=== PATIENT | male | born 1955 | race Caucasian/White ===

== ENCOUNTER 2019-11-26 10:31 | Outpatient (CLI) | payer MEDICARE, SELFPAY ==
--- NOTE | 2019-11-26 10:41 | USCV_ITS ---
Nathan Ca Age: 64 Gender: M : 1955 Exam Date: 11/26/2019 10:55 Ordering Phys: Oly Patterson MD ([email or web address] [place] Technologist: Benita Sierra [place] [facility] [place]: STENOSIS Risk Factors: Previous Vascular Surgery: Right Brachial BP: / Left Brachial BP: / Right Left Velocity (cm/s) Spectral Plaque Velocity (cm/s) Spectral Plaque Syst/Diast Broadening Syst/Diast Broadening 120.20/8.80 Prox CCA 91.50 / 9.90 112.50/8.80 Mid CCA 76.10 / 11.00 76.10/ 7.70 Distal CCA 87.10 / 16.50 54.00/ 12.10 Prox ICA 74.50 / 21.90 63.90/ 13.20 Mid ICA 84.10 / 21.90 115.80/27.60 Distal ICA 68.70 / 14.60 101.40 ECA 102.50 1.03 ICA/CCA 1.11 Antegrade Vertebral Antegrade 33.10/ 11.00 cm/s 41.60/ 8.80 cm/s Tri Subclavian Tri FINDINGS TORTUOUS LT ICA. Mild to moderate scattered plaques bilaterally at the bifurcations. Intimal thickening in the common carotid arteries bilaterally. Antegrade flow in the vertebral arteries bilaterally. Normal Doppler flow velocities in the internal and external carotid arteries bilaterally CONCLUSIONS Mild to moderate scattered plaques bilaterally at the bifurcations. No significant stenosis, based on the above findings. Dr Oly Patterson MD [facility] (Electronically Signed) Final Date: 26 November 2019 13:03 S
== END 2019-11-26 10:32 | disposition home or self-care (01) ==
LOC: RAD 10:34 → RADWPI 11:06
PROVIDERS: Family Provider Family Medicine; PCP Family Medicine; Visit Provider Internal Medicine Cardiovascular Disease
DX: R09.89 Other specified symptoms and signs involving the circulatory and respiratory systems (principal)
CPT/HCPCS: 93880

== ENCOUNTER 2020-05-02 17:18 | Inpatient (IN) | payer MEDICARE, SELFPAY ==
[2020-05-02 17:41] VITALS: BP 105/77; PULSE 105; RESP 14; O2SAT 93; BMI 32.1
--- NOTE | 2020-05-02 17:56 | ECG_ITS ---
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 Measurements Intervals [place] Rate: 178 P: [place]: -1 QRS: -52 QRSD: 110 T: 83 QT: 268 QTc: 462 Interpretive Statements ATRIAL FIBRILLATION WITH RAPID VENTRICULAR RESPONSE PATTERN CONSISTENT WITH PULMONARY DISEASE LEFT ANTERIOR FASCICULAR BLOCK [QRS AXIS <= -45, QR IN I, RS IN II] MODERATE ST DEPRESSION [0.05+ mV ST DEPRESSION] CRITICAL TEST RESULT No previous ECG available for comparison Electronically Signed On 05-03-2020 16:20:29 CDT by Joseph Terry M.D. [email or web address] medical [id number]
--- NOTE | 2020-05-02 17:56 | XRR_ITS ---
PROCEDURE INFORMATION: Exam: XR Chest, 1 View Exam date and time: 05/02/2020 6:16 PM Age: 65 years old Clinical indication: Dyspnea TECHNIQUE: Imaging protocol: XR of the chest Views: 1 view. COMPARISON: [facility] Chest 2 views 06/21/2016 12:22 PM FINDINGS: Lungs: Shallow inspiration with crowding. Patchy ground-glass opacities in the right mid lung and lung base. The left lung is clear. Pleural space: Unremarkable. No pleural effusion. No pneumothorax. Heart/Mediastinum: Unremarkable. No cardiomegaly. Bones/joints: Unremarkable. XR/XR chest 1V portable [id number] IMPRESSION: Atelectasis versus pneumonia in the right lung.
--- NOTE | 2020-05-02 18:03 | CTR_ITS ---
PROCEDURE INFORMATION: Exam: CT Head Without Contrast Exam date and time: 05/02/2020 6:34 PM Age: 65 years old Clinical indication: Altered mental status/memory loss and weakness, extremity; Bilateral; Confusion or disorientation; Additional info: Ams/anticoagulants TECHNIQUE: Imaging protocol: Computed tomography of the head without contrast. Radiation optimization: All CT scans at this facility use at least one of these dose optimization techniques: automated exposure control; mA and/or kV adjustment per patient size (includes targeted exams where dose is matched to clinical indication); or iterative reconstruction. COMPARISON: No relevant prior studies available. RADIATION DOSE METRICS: Total DLP (mGy-cm): 855.91 FINDINGS: Brain: Mild cortical volume loss. Mild hypodensities in supratentorial periventricular and subcortical white matter. Prominent perivascular space in the right lentiform nucleus. Ventricles: Normal. No ventriculomegaly. Bones/joints: Unremarkable. No acute fracture. Sinuses: Small retention cyst or polyp in the left maxillary sinus. Mastoid air cells: Visualized mastoid air cells are well aerated. Soft tissues: Unremarkable. CT/CT head wo con* [id number] IMPRESSION: 1. No acute intracranial abnormality. 2. Mild microangiopathy. Radiation Dose CTDIVOL = (mGy): DLP = 855.91 (mGy-cm)
[2020-05-02 18:15] LABS: Basophils % 0.4 %; Hematocrit 48.8 % (42.0-52.0); Hemoglobin 17.1 g/dL (11.7-16.6); Lymphocytes % 26.5 %; Mean Corpuscular Volume 85.6 fL (80-94); Mean Platelet Volume 11.6 fL (7.4-10.4); Monocytes # 0.8 10^3/uL (0.2-0.9); Monocytes % 10.6 %; Neutrophils # 4.73 10^3/uL (1.8-7.7); Neutrophils % 62.1 %; Nucleated Red Blood Cells % 0 %; Platelet Count 177 10^3/cmm (130-400); Red Cell Distribution Width 12.9 % (12.1-15.1); White Blood Count 7.6 10^3/uL (4.0-10.0)
[2020-05-02 18:21] LABS: ABG PCO2 29.4 mmHg (35-45); ABG PH Result 7.39 (7.35-7.45); Arterial Blood Gas Hematocrit 53.5 % (42-52); Base Excess ABG -5.3 mmol/L (-2.0-2.0); Blood Gas Allen Test Pos; Blood Gas Sample Type Arterial; HCO3 ABG 17.9 mmol/L (22-26); PO2 ABG 76.2 mmHg (80.0-100.0)
[2020-05-02 18:24] LABS: Blood Gas Sample Site Radial, right; Oxygen Device ROOM AIR
[2020-05-02 18:28] LABS: INR 0.92 (0.8-1.2)
[2020-05-02 18:29] LABS: Partial Thromboplastin Time 26.1 SECONDS (23.9-36.7)
[2020-05-02 18:30] LABS: Fibrinogen 509 mg/dL (174-498)
[2020-05-02 18:32] LABS: D Dimer 0.55 ug/mIFEU (0-0.59)
[2020-05-02] MEDS: dexamethasone 4 mg/mL INJ 6 MG IVP (18:39)
--- NOTE | 2020-05-02 18:51 | ED_ITS ---
HPI - Weakness General: Chief complaint: Weakness Stated complaint: covid positive Time Seen by Provider: 05/02/20 17:56 Source: patient Mode of arrival: ambulatory Limitations: no limitations History of Present Illness: HPI Narrative: Mr. Bianchi is a very nice 65-year-old male brought in by his family for increased somnolence, generalized weakness, and nausea with vomiting. Patient states that he has been sick with similar symptoms for approximately 1 week. He was seen by his primary care physician in the office and had a COVID test performed and it came back positive. Patient states he continues to have muscle aches, fatigue and nausea and vomiting. He states that he cannot seem to stay awake but here in the ER after arrival he is alert and oriented times person, place, time and situation. He denies any chest pain or shortness of breath. Does not complain of abdominal pain or diarrhea only nausea and vomiting. He states resting and sleep makes his symptoms better and any type of exertion makes him more fatigued and makes his overall muscle aches worse. Did not place him on any steroids or other medications for his covert infection. Patient denies other complaints at this time. Associated symptoms: Reports nausea and vomiting; Denies chest pain, chills, confusion, melena, diaphoresis, dysuria, easy bruising, fever(s), headache(s) or syncope Review of Systems Const: Reports: body aches, change in appetite, fatigue and malaise; Denies: fever(s), chills or diaphoresis Eyes: Denies: change in vision, blurry vision, photophobia, eye discomfort, eye discharge, eye redness or yellow eyes ENMT: Denies: throat pain, odynophagia, hoarseness, swelling of lips/tongue, ear or mastoid pain, ear discharge, change in hearing or nasal discharge Card: Denies: chest pain, palpitations, irregular heart rhythm, edema, lightheadedness, syncope, pre-syncope, dyspnea on exertion or orthopnea Resp: Denies: dyspnea, productive cough, non-productive cough, wheezing, hemoptysis or chest congestion GI: Reports: nausea and vomiting; Denies: abdominal pain, hematemesis, coffee ground emesis, heartburn, diarrhea, constipation, GI cramping, hematochezia or melena : Denies: flank pain, dysuria, urinary frequency, urinary urgency or hematuria Musc: Denies: neck pain, back pain, extremity pain, extremity swelling, joint pain, joint swelling, joint redness, joint warmth or joint stiffness Skin/Breast: Denies: rash, pruritus, erythema, skin pain or skin tenderness Neuro: Denies: headache(s), numbness in extremities, weakness in extremities, sensory changes, lack of coordination, difficulty walking, dizziness, vertigo, confusion, Slurred speech present or seizure-like activity Liborio/Lymph: Denies: easy bruising, easy bleeding, petechiae, purpura or enlarged lymph nodes All/Imm: Denies: urticaria, throat swelling, tongue swelling, facial swelling or acute wheezing PFSH ED 2 PFSH: Medical History Atrial fibrillation Diabetes Fatigue Hyperlipidemia Hypertension Left carotid bruit Family History Other Diabetes Hypertension Stroke Social History Smoking and tobacco status: former smoker Alcohol intake: former Physical Exam Const: COMMON NORMALS: no acute distress, patient oriented x3, no limitations and alert GENERAL APPEARANCE: cooperative HENMT: COMMON NORMALS: normocephalic, atraumatic, external ears normal, EAC's normal and Normal external nose present HEAD & SCALP: normal to inspection, normocephalic and atraumatic FACE & SINUS: normal facial exam and face symmetric NOSE: Normal external nose present and Normal nares present EXTERNAL EAR: Yes external ears normal EXTERNAL AUDITORY CANAL: EAC's normal MOUTH: Normal oral and palatal mucosa present, lip normal and tongue normal Eye: COMMON NORMALS: Equal, round and reactive pupils present and conjunctivae normal GENERAL EYE: appearance normal, both eyes and all related structures ALIGNMENT: Yes alignment normal PERIORBITAL: periorbital findings normal EYELID: eyelids normal CONJUNCTIVA: Yes conjunctivae normal SCLERA: sclerae normal PUPIL: Yes Equal, round and reactive pupils present Neck/C-Spine: COMMON NORMALS: full ROM, no lymphadenopathy, supple, no meningeal signs and no JVD GENERAL: Yes normal visual inspection and Yes trachea midline Chest: COMMONS NORMALS: normal inspection of the chest and normal palpation of entire chest wall Resp: COMMON NORMALS: normal respiratory effort, No retractions, No use of accessory muscles and clear to auscultation bilaterally EFFORT & INSPECTION: Yes able to speak in complete sentences and Yes symmetric chest movement AUSCULTATION: clear to auscultation bilaterally, no crackles, no rales, no rhonchi and no wheezes Cardio: COMMON NORMALS: no JVD, S1 normal heart sound present and S2 normal heart sound present RATE: tachycardic RHYTHM: abnormal rhythm irregularly irregular HEART SOUNDS: S1 normal heart sound present, S2 normal heart sound present, no click, no gallops, no murmurs and no rubs GI: COMMON NORMALS: Soft to palpation and No hepatosplenomegaly present PALPATION: Yes Soft to palpation, No Tenderness to palpation present (GI), No Guarding due to palpation present (GI), No Rigid due to palpation, Yes No h epatosplenomegaly present, No Hernia present, No Palpable mass present and No Pulsatile mass present : COMMON NORMALS: Yes no CVA tenderness BLADDER/KIDNEY EXAM: Yes no CVA tenderness Back/Pelvis: COMMON NORMALS: no CVA tenderness, thoracic and lumbar spine normal to inspection, no thoracic nor lumbar tenderness and thoraco-lumbar ROM normal Extremity: COMMON NORMALS: normal to inspection, full ROM, capillary refill normal, no joint enlargement, no clubbing, cyanosis or edema and no calf tenderness Neuro: COMMON NORMALS: patient oriented x3, CN's II-XII intact bilaterally, moves all extremities, no focal motor deficits and no sensory deficits noted SENSORIUM/ORIENTATION: Yes alert MENINGEAL SIGNS: Yes no meningeal signs SPEECH: speech normal Psych: COMMON NORMALS: mental status grossly normal, Normal thought process present, cooperative, normal affect, speech normal and activity/motor behavior normal SPEECH: Yes normal speech THOUGHT PROCESS: Normal thought process present Skin: COMMON NORMALS: no rashes or lesions noted, turgor normal, no jaundice, no petechiae and no mottling GENERAL SKIN EXAM: no rashes or lesions noted and turgor normal Course Vital Signs: Vital signs: Vital Signs Pulse Rate 110 H 05/02/20 21:10 Respiratory Rate 18 05/02/20 21:10 Blood Pressure 127/69 05/02/20 21:10 Pulse Oximetry 94 05/02/20 21:10 MDM - Weakness MDM Narrative: Medical decision making narrative: Nathan is a 65-year-old male who comes in complaining of increased somnolence, generalized weakness and recently had a positive covert test. He was found to be in atrial fibrillation with rapid ventricular response. After 2 IV boluses of Cardizem and a drip his heart rate is running in the 100s to 1 teens. Chest x-ray could possibly show a right lower lobe infiltrate. Patient CT head is normal. He is not retaining CO2. I believe he is likely septic from either the COVID virus or focal pneumonia. He had a positive antibody test for COVID at [facility] but here are rapid test is negative. A PTC test has been sent. Patient is stable and has been given IV fluids and IV antibiotics. His heart rate is improved. I have endorsed the case to Dr. Carrillo and she agrees to admit for further evaluation and care. Lab Data: Attestation: I reviewed the patient's lab results. Labs: Lab Results 05/02/20 05/02/20 05/02/20 Range/Units 18:06 18:06 18:06 WBC 7.6 (4.0-10.0) 10^3/ uL RBC 5.70 H (4.1-5.3) 10^6/u L Hgb 17.1 H (11.7-16.6) g/dL Hct 48.8 (42.0-52.0) % MCV 85.6 (80-94) fL MCH 30.0 (28.0-34.0) pg MCHC 35.0 (30.0-36.0) g/dL RDW 12.9 (12.1-15.1) % Plt Count 177 (130-400) 10^3/c mm MPV 11.6 H (7.4-10.4) fL Neut % (Auto) 62.1 % Lymph % (Auto) 26.5 % Meriwether % (Auto) 10.6 % Eos % (Auto) 0.0 % Baso % (Auto) 0.4 % Neut # (Auto) 4.73 (1.8-7.7) 10^3/u L Lymph # (Auto) 2.0 (0.8-4.8) 10^3/u L Mer[place]ether # (Auto) 0.8 (0.2-0.9) 10^3/u L Eos # (Auto) 0.0 (0.0-0.8) 10^3/u L Baso # (Auto) 0.0 (0.0-0.1) 10^3/u L Nucleated RBC % (a uto) 0 % Nucleated RBCs # 0.0 /100WBC PT 12.60 (12.1-14.9) SECO NDS INR 0.92 (0.8-1.2) APTT 26.1 (23.9-36.7) SECO NDS Fibrinogen 509 H (174-498) mg/dL D-Dimer 0.55 (0-0.59) ug/mIFE U Specimen Type Sample Site ABG pH (7.35-7.45) ABG pCO2 (35-45) mmHg ABG pO2 (80.0-100.0) mmH g ABG HCO3 (22-26) mmol/L ABG Base Excess (-2.0-2.0) mmol/ L Jorge Test Hematocrit (42-52) % O2 Delivery Device FiO2 % Professor Of Psychology ID Sodium Cancelled Potassium Cancelled Chloride Cancelled Carbon Dioxide Cancelled Anion Gap Cancelled BUN Cancelled Creatinine Cancelled GFR Calculation Cancelled Glucose Cancelled Calculated Osmolal ity Cancelled Lactic Acid Lactic Acid (Sepsi s) (0.5-2.2) mmol/L Calcium Cancelled Ferritin Cancelled Total Bilirubin Cancelled AST Cancelled ALT Cancelled Alkaline Phosphata se Cancelled Lactate Dehydrogen ase Cancelled C-Reactive Protein Cancelled Total Protein Cancelled Albumin Cancelled Globulin Cancelled Procalcitonin Cancelled Serum Ketones (Negative) SARS-CoV-2 Ag (Rap id) (Negative) 05/02/20 05/02/20 05/02/20 Range/Units 18:06 18:10 18:39 WBC (4.0-10.0) 10^3/ uL RBC (4.1-5.3) 10^6/u L Hgb (11.7-16.6) g/dL Hct (42.0-52.0) % MCV (80-94) fL MCH (28.0-34.0) pg MCHC (30.0-36.0) g/dL RDW (12.1-15.1) % Plt Count (130-400) 10^3/c mm MPV (7.4-10.4) fL Neut % (Auto) % Lymph % (Auto) % Meriwether % (Auto) % Eos % (Auto) % Baso % (Auto) % Neut # (Auto) (1.8-7.7) 10^3/u L Lymph # (Auto) (0.8-4.8) 10^3/u L Meriwether # (Auto) (0.2-0.9) 10^3/u L Eos # (Auto) (0.0-0.8) 10^3/u L Baso # (Auto) (0.0-0.1) 10^3/u L Nucleated RBC % (a uto) % Nucleated RBCs # /100WBC PT (12.1-14.9) SECO NDS INR (0.8-1.2) APTT (23.9-36.7) SECO NDS Fibrinogen (174-498) mg/dL D-Dimer (0-0.59) ug/mIFE U Specimen Type Arterial Sample Site Radial, right ABG pH 7.39 (7.35-7.45) ABG pCO2 29.4 L (35-45) mmHg ABG pO2 76.2 L (80.0-100.0) mmH g ABG HCO3 17.9 L (22-26) mmol/L ABG Base Excess -5.3 L (-2.0-2.0) mmol/ L Jorge Test Pos Hematocrit 53.5 H (42-52) % O2 Delivery Device Room air FiO2 21.0 % Professor Of Psychology ID Jlg Sodium Potassium Chloride Carbon Dioxide Anion Gap BUN Creatinine GFR Calculation Glucose Calculated Osmolal ity Lactic Acid Cancelled Lactic Acid (Sepsi s) (0.5-2.2) mmol/L Calcium Ferritin Total Bilirubin AST ALT Alkaline Phosphata se Lactate Dehydrogen ase C-Reactive Protein Total Protein Albumin Globulin Procalcitonin Serum Ketones (Negative) SARS-CoV-2 Ag (Rap id) Negative (Negative) 05/02/20 05/02/20 05/02/20 Range/Units 18:39 18:39 18:39 WBC (4.0-10.0) 10^3/ uL RBC (4.1-5.3) 10^6/u L Hgb (11.7-16.6) g/dL Hct (42.0-52.0) % MCV (80-94) fL MCH (28.0-34.0) pg MCHC (30.0-36.0) g/dL RDW (12.1-15.1) % Plt Count (130-400) 10^3/c mm MPV (7.4-10.4) fL Neut % (Auto) % Lymph % (Auto) % Meriwether % (Auto) % Eos % (Auto) % Baso % (Auto) % Neut # (Auto) (1.8-7.7) 10^3/u L Lymph # (Auto) (0.8-4.8) 10^3/u L [place]ether # (Auto) (0.2-0.9) 10^3/u L Eos # (Auto) (0.0-0.8) 10^3/u L Baso # (Auto) (0.0-0.1) 10^3/u L Nucleated RBC % (a uto) % Nucleated RBCs # /100WBC PT (12.1-14.9) SECO NDS INR (0.8-1.2) APTT (23.9-36.7) SECO NDS Fibrinogen (174-498) mg/dL D-Dimer (0-0.59) ug/mIFE U Specimen Type Sample Site ABG pH (7.35-7.45) ABG pCO2 (35-45) mmHg ABG pO2 (80.0-100.0) mmH g ABG HCO3 (22-26) mmol/L ABG Base Excess (-2.0-2.0) mmol/ L Jorge Test Hematocrit (42-52) % O2 Delivery Device FiO2 % Professor Of Psychology ID Sodium 129 L Potassium 5.0 Chloride 93 L Carbon Dioxide 18 L Anion Gap 23.0 H BUN 36 H Creatinine 1.4 H GFR Calculation 50.5 L Glucose 362 H Calculated Osmolal ity 280 L Lactic Acid 2.4 H Lactic Acid (Sepsi s) (0.5-2.2) mmol/L Calcium 9.1 Ferritin Total Bilirubin 0.5 AST 20 ALT 20 Alkaline Phosphata se 90 Lactate Dehydrogen ase 225 C-Reactive Protein Total Protein 7.2 Albumin 4.2 Globulin 3.0 Procalcitonin Serum Ketones Negative (Negative) SARS-CoV-2 Ag (Rap id) (Negative) 09/11/20 Range/Units 20:45 WBC (4.0-10.0) 10^3/ uL RBC (4.1-5.3) 10^6/u L Hgb (11.7-16.6) g/dL Hct (42.0-52.0) % MCV (80-94) fL MCH (28.0-34.0) pg MCHC (30.0-36.0) g/dL RDW (12.1-15.1) % Plt Count (130-400) 10^3/c mm MPV (7.4-10.4) fL Neut % (Auto) % Lymph % (Auto) % Meriwether % (Auto) % Eos % (Auto) % Baso % (Auto) % Neut # (Auto) (1.8-7.7) 10^3/u L Lymph # (Auto) (0.8-4.8) 10^3/u L Mer[place]ether # (Auto) (0.2-0.9) 10^3/u L Eos # (Auto) (0.0-0.8) 10^3/u L Baso # (Auto) (0.0-0.1) 10^3/u L Nucleated RBC % (a uto) % Nucleated RBCs # /100WBC PT (12.1-14.9) SECO NDS INR (0.8-1.2) APTT (23.9-36.7) SECO NDS Fibrinogen (174-498) mg/dL D-Dimer (0-0.59) ug/mIFE U Specimen Type Sample Site ABG pH (7.35-7.45) ABG pCO2 (35-45) mmHg ABG pO2 (80.0-100.0) mmH g ABG HCO3 (22-26) mmol/L ABG Base Excess (-2.0-2.0) mmol/ L Jorge Test Hematocrit (42-52) % O2 Delivery Device FiO2 % Professor Of Psychology ID Sodium Potassium Chloride Carbon Dioxide Anion Gap BUN Creatinine GFR Calculation Glucose Calculated Osmolal ity Lactic Acid Lactic Acid (Sepsi s) 1.7 (0.5-2.2) mmol/L Calcium Ferritin Total Bilirubin AST ALT Alkaline Phosphata se Lactate Dehydrogen ase C-Reactive Protein Total Protein Albumin Globulin Procalcitonin Serum Ketones (Negative) SARS-CoV-2 Ag (Rap id) (Negative) Imaging Data^: CXR: Attestation: I personally reviewed and interpreted this imaging study as follows: My impression: Possible right lower lobe infiltrate. EKG Data^: EKG 1: Attestation: I personally reviewed and interpreted this EKG as follows: EKG interpretation date: 05/02/20 EKG interpretation time: 18:04 Interpretation: Atrial fibrillation with ventricular rate of 178 beats a minute, left axis deviation, left anterior fascicular block, nonspecific ST and T wave changes. EKG 2: Attestation: I personally reviewed and interpreted this EKG as follows: EKG interpretation date: 05/02/20 EKG interpretation time: 20:58 Interpretation: Atrial fibrillation with a rapid ventricular response at 121 beats a minute, left axis deviation, left anterior fascicular block, nonspecific ST and T wave changes. Discharge Plan Discharge Patient Disposition: Admitted As Inpatient Clinical Impression: Atrial fibrillation with rapid ventricular response, Pneumonia Condition: Stable Prescriptions: No Action Januvia 100 mg tablet 100 mg PO DAILY RF: 0 Jardiance 25 mg tablet 25 mg PO DAILY RF: 0 krill oil 500 mg capsule PO DAILY RF: 0 magnesium 250 mg PO DAILY RF: 0 Eliquis 5 mg tablet 5 mg PO BID RF: 0 rosuvastatin 10 mg tablet 10 mg PO DAILY RF: 0 metformin 1,000 mg tablet 1,000 mg PO DAILY RF: 0 metoprolol tartrate 50 mg tablet 50 mg PO BID Qty: 180 RF: 3 Referrals: Ramos Bradshaw MD [Primary Care Provider] - Interventions: ED Charges Last Done: 05/02/20 18:50 Coding Level of Care Code ED 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
[2020-05-02 19:13] LABS: SARS Covid-2 Antigen Negative (Negative)
[2020-05-02 19:14] LABS: Lactic Sepsis W/Reflex 2.4 mmol/L (0.5-2.2)
[2020-05-02 19:15] LABS: Alanine Aminotransferase 20 U/L (0-41); Albumin Level 4.2 g/dL (3.5-5.2); Alkaline Phosphatase 90 IU/L (40-130); Aspartate Amino Transferase 20 U/L (0-40); Blood Urea Nitrogen 36 mg/dL (8-23); Calcium 9.1 mg/dL (8.5-10.5); Carbon Dioxide 18 mmol/L (22-29); Chloride 93 mmol/L (98-107); Glomerular Filtration Rate 50.5 mL/min (90-130); Glucose 362 mg/dL (65-115); Lactate Dehydrogenase 225 U/L (135-225); Osmolality Calculated 280 mOsm/kg (285-295); Sodium 129 mmol/L (136-145); Total Bilirubin 0.5 mg/dL (0.15-1.2); Total Protein 7.2 g/dL (6.6-8.7)
--- NOTE | 2020-05-02 19:18 | ECG_ITS ---
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 Measurements Intervals [place] Rate: 121 P: [place]: -1 QRS: -45 QRSD: 105 T: 94 QT: 338 QTc: 481 Interpretive Statements ATRIAL FIBRILLATION WITH RAPID VENTRICULAR RESPONSE PATTERN CONSISTENT WITH PULMONARY DISEASE LEFT ANTERIOR FASCICULAR BLOCK [QRS AXIS <= -45, QR IN I, RS IN II] NONSPECIFIC ST & T-WAVE ABNORMALITY Compared to ECG 05/02/2020 18:04:46 T-wave abnormality now present ST (T wave) deviation no longer present Electronically Signed On 05-03-2020 16:20:37 CDT by Joseph Terry M.D. [id number]
[2020-05-02] MEDS: sodium chloride 0.9% 1,000 ML 999 ML IV (19:30)
[2020-05-02] MEDS: piperacillin-tazobactam 3.375 GM in sodium chloride 0.9% (plus) 50 ML IV (19:31)
[2020-05-02 19:53] VITALS: BP 110/78; PULSE 105; RESP 21; O2SAT 96
[2020-05-02 20:39] LABS: Reflex Lactate Order REFLEX LACTIC ORDERD
[2020-05-02 21:06] LABS: Ketone (Acetest) Serum Negative (Negative)
[2020-05-02 21:10] VITALS: BP 127/69; PULSE 110; RESP 18; O2SAT 94
[2020-05-02 21:11] LABS: Lactic Acid level (Lactate) 1.7 mmol/L (0.5-2.2)
[2020-05-02 21:14] LABS: Troponin(5th) Baseline 18 ng/L (0-15)
--- NOTE | 2020-05-02 21:18 | ECG_ITS ---
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 Measurements Intervals [place] Rate: 104 P: [place]: -1 QRS: -41 QRSD: 102 T: 95 QT: 340 QTc: 448 Interpretive Statements ATRIAL FIBRILLATION WITH RAPID VENTRICULAR RESPONSE LEFT AXIS DEVIATION [QRS AXIS < -30] NONSPECIFIC T-WAVE ABNORMALITY Compared to ECG 05/02/2020 20:58:44 Left-axis deviation now present Left anterior fascicular block no longer present T-wave abnormality still present Electronically Signed On 05-03-2020 16:22:16 CDT by Joseph Terry M.D. [id number]
--- NOTE | 2020-05-02 21:23 | PM.HP ---
Providers/Chief Complaint Admitting Physician: Kacey Carrillo MD Primary Care Provider: Ramos Bradshaw MD Chief Complaint: covid positive History of Present Illness Nathan Ca is a 65 year old male with PMHx noted below presents from home due to ongoing generalized weakness, malaise, cough with minimal sputum production, fever/chills, myalgia, increasing fatigue over the past 1 week. He states that his has also had similar symptoms and recently tested positive for COVID-19. He was tested on Tuesday at [facility] and found to be positive for COVID-19 as well. Since he was tested he has had worsening symptoms and increasing weakness to the point where he is barely able to get out of bed. He denies loss of sense of taste or smell, chest pain or chest tightness, abdominal pain. He has had nausea and vomiting, poor oral intake and diarrhea. He reports that prior to the onset of his symptoms due to recent loss of his niece family had gathered together for celebration of life event and shortly after this he developed symptoms. His son who lives in [place] who had come for the event is also positive for COVID-19. On his arrival here he was noted to have A. fib with RVR with heart rates in the 170s though he denies having had any palpitations. Labs indicate a normal white count at 7.6, hemoglobin of 17.1 which is likely hemoconcentration, sodium of 129, potassium of 5.0, BUN of 36, creatinine of 1.4, blood glucose of 362, ABG showing hypoxia, lactate of 2.4, negative d-dimer, normal INR, CT scan of the head which is negative, chest x-ray with reported atelectasis versus pneumonia in the right lung. He follows up with Dr. Patterson as his primary bag turner, last echo was in December 2018 showed an ejection fraction of 65% with grade 2 diastolic dysfunction. He has received a dose of Zosyn, 2 boluses of Cardizem and Cardizem drip is currently running. Heart rates are around 130s during my assessment at bedside in the ER. Rapid COVID-19 testing is negative, PCR has been ordered and is currently pending. Patient will remain in isolation until PCR test results available. Due to continued A. fib with RVR and need for continued treatment for symptomatic pneumonia he will need to be admitted to the hospital. Due to need for Cardizem drip, he will be admitted to CSU. Review of Systems Const: Reports: fever(s), chills, body aches, change in appetite (decreased appetite), fatigue, malaise and daytime sleepiness Eyes: Denies: change in vision Card: Denies: chest pain, swelling of feet/ankles, lightheadedness, syncope, dyspnea on exertion or orthopnea Resp: Reports: dyspnea and productive cough (clear sputum, minimal) GI: Reports: nausea, vomiting and diarrhea; Denies: abdominal pain, hematemesis or hematochezia : Denies: dysuria or hematuria Musc: Denies: back pain Skin/Breast: Denies: rash Neuro: Reports: weakness in extremities and difficulty walking; Denies: numbness in extremities Psych: Denies: anxiety Medications/Allergies Home Medications Medication Instructions Recorded Confirmed Last Taken Type apixaban 5 mg tablet 5 mg PO BID 11/06/19 Unknown History empagliflozin 25 mg tablet 25 mg PO DAILY 11/06/19 Unknown History krill oil 500 mg capsule mg PO DAILY cap 11/06/19 Unknown History magnesium 250 mg PO DAILY 11/06/19 Unknown History metformin 1,000 mg tablet 1,000 mg PO DAILY 11/06/19 Unknown History rosuvastatin 10 mg tablet 10 mg PO DAILY 11/06/19 Unknown History sitagliptin 100 mg tablet 100 mg PO DAILY 11/06/19 Unknown History metoprolol tartrate 50 mg tablet 50 mg PO BID #180 tab 01/30/20 Unknown Rx Allergies Allergy/AdvReac Type Severity Reaction Status Date / Time lisinopril Allergy Unknown cough Verified 11/06/19 13:44 PFSH Acute PFSH: Medical History (Updated 05/02/20 @ 21:55 by Kacey Carrillo MD) Atrial fibrillation Diabetes Fatigue Hyperlipidemia Hypertension Left carotid bruit Surgical History (Updated 05/02/20 @ 21:26 by Kacey Carrillo MD) No pertinent past surgical history Family History (Updated 05/02/20 @ 22:05 by Kacey Carrillo MD) Father Stroke Family/Other Cancer niece Other Diabetes Hypertension Social History (Updated 05/02/20 @ 22:05 by Kacey Carrillo MD) Smoking and tobacco status: former smoker Quit status (tobacco): has quit using tobacco Year quit tobacco: 1984 Alcohol intake: former Year of sobriety/quit date alcohol: 1984 Substance/Drug Use: never Household members: spouse Marital status: Vitals/I&O/Wt Last Vital Signs Pulse 110 H 05/02/20 21:10 Resp 18 05/02/20 21:10 BP 127/69 05/02/20 21:10 Pulse Ox 94 05/02/20 21:10 Weight last 48 hrs Weight 104.326 kg Physical Exam Const: COMMON NORMALS: no acute distress and patient oriented x3 GENERAL APPEARANCE: cooperative and comfortable ORIENTATION/CONSCIOUSNESS: Yes awake HENMT: COMMON NORMALS: normocephalic, atraumatic, hearing grossly normal bilaterally and moist oral mucous membranes HEAD & SCALP: normocephalic and atraumatic Eye: COMMON NORMALS: Equal, round and reactive pupils present, EOMs intact bilaterally and conjunctivae normal CONJUNCTIVA: Yes conjunctivae normal PUPIL: Yes Equal, round and reactive pupils present Neck/C-Spine: COMMON NORMALS: full ROM GENERAL: Yes normal visual inspection and Yes trachea midline Resp: COMMON NORMALS: normal respiratory effort, No retractions, No use of accessory muscles and clear to auscultation bilaterally EFFORT & INSPECTION: Yes able to speak in complete sentences, Yes symmetric chest movement and No tachypneic AUSCULTATION: clear to auscultation bilaterally Cardio: COMMON NORMALS: regular rate, regular rhythm, S1 normal heart sound present, S2 normal heart sound present and No murmurs present (Cardio) RATE: regular rate RHYTHM: regular rhythm HEART SOUNDS: S1 normal heart sound present and S2 normal heart sound present GI: COMMON NORMALS: Normal to inspection, nondistended, normoactive bowel sounds present, Soft to palpation and non-tender PALPATION: Yes Soft to palpation Extremity: COMMON NORMALS: normal to inspection, full ROM and no clubbing, cyanosis or edema; negative for no pedal edema Neuro: COMMON NORMALS: patient oriented x3, moves all extremities, no focal motor deficits, no sensory deficits noted and gait normal Psych: COMMON NORMALS: mental status grossly normal, Normal thought process present, cooperative, normal affect and speech normal SPEECH: Yes normal speech THOUGHT PROCESS: Normal thought process present Skin: COMMON NORMALS: no rashes or lesions noted, no jaundice, no petechiae and no mottling GENERAL SKIN EXAM: no rashes or lesions noted Data : 05/02/20 18:06 05/02/20 18:39 Micro: Microbiology 05/02/20 18:39 Blood Culture - Preliminary Blood SPECIMEN COLLECTED 05/02/20 18:06 Blood Culture - Preliminary Blood SPECIMEN COLLECTED A&P Assessment and plan (1) Atrial fibrillation with rapid ventricular response: -Found to have A. fib with RVR with heart rates in the 170s; likely triggered by respiratory infection -Received 2 boluses of Cardizem, currently on Cardizem drip running at 10 mg/hr; wean off as tolerated -Telemetry monitoring -Close monitoring of vital signs -Resume beta-theresa and anticoagulation with Eliquis -Last echo was done over a year ago so we will repeat; noted to have an ejection fraction of 65%, grade 2 diastolic dysfunction, mild MR, mild pulmonary hypertension -Noted baseline troponin of 18 -Check TSH, magnesium Status: Acute (2) Pneumonia: -Noted evidence of right-sided pneumonia on chest x-ray -Symptomatic and tested to [facility], found to be positive for COVID-19. Rapid COVID-19 test here negative, PCR pending -Isolation precautions -Received dose of Zosyn in ER, will continue treatment with ceftriaxone and azithromycin -f/u blood cx -Monitor respiratory status, supplemental oxygen as needed -ABG with noted hypoxia Status: Acute Qualifiers: Laterality: right Lung location: lower lobe of lung Pneumonia type: due to unspecified organism Qualified Code(s): J18.9 - Pneumonia, unspecified organism (3) Hypertension: -Monitor vital signs -Resume oral antihypertensives Status: Chronic Qualifiers: Hypertension type: essential hypertension Qualified Code(s): I10 - Essential (primary) hypertension (4) Hyperlipidemia: -Resume statin Status: Chronic Qualifiers: Hyperlipidemia type: mixed hyperlipidemia Qualified Code(s): E78.2 - Mixed hyperlipidemia (5) Diabetes: -Noted significant hyperglycemia, not in DKA serum ketones are negative, pH is normal -Check A1c -Accu-Cheks, ISS, hypoglycemia precautions -Consistent carb diet as tolerated -Hold oral hypoglycemic agents Status: Chronic Qualifiers: Diabetes mellitus type: type 2 Diabetes mellitus manager intermediate insulin use: without manager intermediate use Diabetes mellitus complication status: without complication Qualified Code(s): E11.9 - Type 2 diabetes mellitus without complications Additional A&P Information -Morbid obesity: BMI-32 kg/m2 -Generalized weakness, likely secondary to acute infection, PT evaluation, fall precautions -Pseudohyponatremia; corrected sodium is 133 -JEANNINE on CKD stage II; gentle IV fluid hydration, continue to monitor renal function, renally dose meds, avoid nephrotoxins, monitor urine output -DVT ppx with SCDs, already on Eliquis -Dispo: home -Code status: FULL code Attestations Medical Necessity Statement*: Nathan Ca's hospital stay will require greater than 2 midnights for management of atrial fibrillation with RVR currently on Cardizem drip, treatment of symptomatic pneumonia and need for further testing for COVID-19 infection. Time Spent in Patient Care: Greater than 35 minutes (>than 50% of time spent in counselling and/or direct pt care on unit). Coding Level of Care Code Acute Program Eligibility Specialist for Darryl Chud Diagnoses Atrial fibrillation with rapid ventricular response I48.91 Pneumonia J18.9 Laterality: right Lung location: lower lobe of lung Pneumonia type: due to unspecified organism Hypertension I10 Hypertension type: essential hypertension Hyperlipidemia E78.2 Hyperlipidemia type: mixed hyperlipidemia Diabetes E11.9 Diabetes mellitus type: type 2 Diabetes mellitus manager intermediate insulin use: without manager intermediate use Diabetes mellitus complication status: without complication
[2020-05-02 21:43] LABS: Procalcitonin 0.08 ng/mL (0-0.5)
[2020-05-02 21:55] LABS: C Reactive Protein 9.2 mg/L (0.0-4.9); Ferritin 852 ng/mL (30-400)
[2020-05-02 22:13] VITALS: BP 119/64; PULSE 102; RESP 21; O2SAT 95
--- NOTE | 2020-05-02 22:25 | PC.NURSE ---
Clarified orders with physician of bed placement. Pt is to be admitted to CSU.
[2020-05-02 22:56] VITALS: BP 117/65; PULSE 98; RESP 16; O2SAT 95
[2020-05-02 23:15] LABS: Troponin 5 2HR 20.81 ng/L (0-15); Troponin 5 2HR Delta 2.81 ABS# (0-10)
[2020-05-02 23:21] VITALS: BP 120/81; PULSE 109; RESP 15; O2SAT 96
--- NOTE | 2020-05-02 23:47 | PC.NURSE ---
Arrived to CSU from ED at 2315. Patient is on telemetry and is cooperative with cares. Patient is also on airborne precautions due to Covid R/O. Continue care
[2020-05-03] MEDS: sodium chloride 0.9% 1,000 ML 100 ML IV ×3 (00:03→22:14)
[2020-05-03 00:16] VITALS: BP 120/81; PULSE 102; RESP 13; TEMP 36.3; O2SAT 96
[2020-05-03] MEDS: azithromycin 500 MG in sodium chloride 0.9% 250 ML 250 MG IV ×2 (00:37→23:47)
--- NOTE | 2020-05-03 01:18 | ECG_ITS ---
[facility] [place] [facility] Date: 2020-05-03 Pat Name: Nathan Ca Department: Room: 104 Gender: Male Manager Quality Compliance: jacquelyn JOSEPH: 1955 Requested By: Triny Hernandez Order Number: [id number] Michael MD: Joseph Terry M.D. Measurements Intervals [place] Rate: 117 P: CO: -1 QRS: -36 QRSD: 103 T: 90 QT: 352 QTc: 491 Interpretive Statements ATRIAL FIBRILLATION WITH RAPID VENTRICULAR RESPONSE MARKED LEFT AXIS DEVIATION [QRS AXIS < -30] Compared to ECG 05/02/2020 22:47:20 T-wave abnormality no longer present Electronically Signed On 05-03-2020 16:25:51 CDT by Joseph Terry M.D. [id number]
--- NOTE | 2020-05-03 02:02 | PC.NURSE ---
Patient resting in bed at this time, patient's heart rate did increase to 120's around 0100 and cardizem gtt was titrated to 15 mcg from 10mg. Currently patients heart rate is still afib with running low 80s. Drip titrated back down to 10 mg.
[2020-05-03 04:00] VITALS: BP 127/62; PULSE 77; RESP 19; TEMP 36.3; O2SAT 95
--- NOTE | 2020-05-03 05:19 | PC.NURSE ---
Cardizem titrated to 5 mg at 0519. Heart rate currently running low 70's. Continue care
[2020-05-03 06:12] LABS: Hematocrit 43.7 % (42.0-52.0); Hemoglobin 14.7 g/dL (11.7-16.6); Mean Corpuscular HGB Conc 33.6 g/dL (30.0-36.0); Mean Corpuscular Hemoglobin 29.9 pg (28.0-34.0); Mean Platelet Volume 11.4 fL (7.4-10.4); Monocytes # 0.3 10^3/uL (0.2-0.9); Monocytes % 9.8 %; Neutrophils # 1.46 10^3/uL (1.8-7.7); Neutrophils % 52.8 %; Nucleated Red Blood Cells % 0 %; Platelet Count 118 10^3/cmm (130-400); Red Blood Count 4.91 10^6/uL (4.1-5.3); White Blood Count 2.8 10^3/uL (4.0-10.0)
[2020-05-03 06:36] LABS: Glucose Point of Care 383 mg/dL (70-110)
[2020-05-03 06:56] LABS: Magnesium 2.4 mg/dL (1.7-2.3); Thyroid Stimulating Hormone 0.48 uIU/mL (0.27-4.20)
[2020-05-03 07:14] VITALS: BP 144/88; PULSE 74; RESP 15; TEMP 36.5; O2SAT 96
[2020-05-03 07:14] LABS: Estmated Average Glucose 212
[2020-05-03] MEDS: apixaban 5 mg Tablet PO ×2 (08:09→17:18)
[2020-05-03] MEDS: cefTRIAXone 1,000 MG in sodium chloride 0.9% (plus) 50 ML 100 MG IV (08:09)
[2020-05-03] MEDS: atorvastatin 40 mg Tablet PO (08:09)
[2020-05-03] MEDS: metoprolol tartrate 50 mg Tablet PO ×2 (08:10→17:18)
[2020-05-03 08:46] LABS: Add Urine Microscopic? NO
[2020-05-03 08:55] LABS: Bilirubin Urine Neg (Negative); Blood Urine Neg (Negative); Glucose Urine UA 4+ (Normal); Ketones Urine 1+ (Negative); Leukocyte Esterase Urine Negative (Negative); Nitrate Urine Negative (Negative); Protein Urine Neg (Negative); Urine Appearance Clear (CLEAR); Urine Color Yellow (Yellow); Urobilinogen Urine Norm (Negative); pH Urine 5 (5-7)
--- NOTE | 2020-05-03 09:03 | CTR_ITS ---
PROCEDURE INFORMATION: Exam: CT Angiography Chest With Contrast Exam date and time: 05/03/2020 9:40 AM Age: 65 years old Clinical indication: Cough and shortness of breath; Additional info: Covid positive, cough, SOB TECHNIQUE: Imaging protocol: Computed tomographic angiography of the chest with intravenous contrast. 3D rendering (Not supervised by radiologist): MIP and/or 3D reconstructed images were created by the technologist. Radiation optimization: All CT scans at this facility use at least one of these dose optimization techniques: automated exposure control; mA and/or kV adjustment per patient size (includes targeted exams where dose is matched to clinical indication); or iterative reconstruction. Contrast material: VISI 320; Contrast volume: 95 ml; Contrast route: INTRAVENOUS (IV); COMPARISON: CR XR chest 1V portable [id number] 05/02/2020 6:04 PM RADIATION DOSE METRICS: Total DLP (mGy-cm): 631.13 FINDINGS: Pulmonary arteries: Pulmonary arteries well opacified to the subsegmental level. No evidence of pulmonary embolism. Aorta: Unremarkable. No aortic aneurysm. No aortic dissection. Lungs: Patchy predominantly peripheral ground-glass opacities with somewhat rounded configuration throughout the lungs, typical appearance for COVID-19 pneumonia. No lobar consolidation. In addition, there is a sharply demarcated 12 x 10 mm solid nodule within the superior segment of the left lower lobe (image 255 series 2) concerning for neoplasia. The airways are normal in caliber and patent. Pleural space: Unremarkable. No pneumothorax. No pleural effusion. Heart: Unremarkable. No cardiomegaly. No pericardial effusion. Lymph nodes: There are scattered nonspecific bilateral borderline enlarged hilar and mediastinal nodes measuring up to 10 mm in short axis. Bones/joints: No acute or aggressive osseous lesion. Soft tissues: Unremarkable. Other findings: No acute findings within the included upper abdomen. CT/CT angio chest PE protcl [id number] IMPRESSION: 1. No evidence of pulmonary embolism. 2. Bilateral patchy ground-glass opacities throughout the lungs, typical appearance of COVID-19 pneumonia. No lobar consolidation. 3. Additional 12 mm solid nodule superior segment left lower lobe concerning for neoplasia. For both low risk and high risk patients, consider CT at 3 months, PET/CT or biopsy (Siva et al., Fleischner Society, 2017). 4. Nonspecific bilateral borderline enlarged mediastinal and hilar nodes. Radiation Dose CTDIVOL = (mGy): DLP = 631.13 (mGy-cm)
--- NOTE | 2020-05-03 10:07 | PC.NURSE ---
to ct scan with covid ppe
[2020-05-03 11:15] VITALS: BP 104/67; PULSE 89; RESP 21; TEMP 36.3; O2SAT 94
[2020-05-03] MEDS: iohexol 350 mg/mL 100 mL Btl IV (11:17)
--- NOTE | 2020-05-03 11:24 | PC.NURSE ---
cardizem drip turned off at this time.afib with rate at 70-80's.
[2020-05-03 11:46] LABS: Glucose Point of Care 278 mg/dL (70-110)
--- NOTE | 2020-05-03 15:40 | P.PN_ITS ---
Subjective Subjective: Interval history: This morning patient was examined in the cardiac stepdown unit, is known COVID positive, on COVID-19 precautions, patient tells me that on April 29 he had a for his niece, she unfortunately from brain cancer, they had family from out of town, the day after he started to feel unwell, he says that he just had generalized fatigue, malaise, weakness with minimal exertion, such as getting up to let the dog out was suddenly very difficult for him, he says that it feels like the flu , I just did not feel well, had chills, no fevers per se, no shortness of breath per se, mild cough, just significant fatigue for exertion. 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 He told me that the very next day he presented [facility] and was tested work for COVID-19, tested positive, tells me that the test result was obtained in 30 minutes. Since then his tested positive, but she is doing well. His son and [id number] both tested positive. He stated that over the next few days, he continued to have profound fatigue, weakness also with poor appetite, now profound diarrhea, some lightheadedness, no dizziness. Patient states that he did not take his metoprolol for the last 4 days, as he just was not feeling well enough to take it. Has a known history of atrial fibrillation. Patient was admitted to the cardiac stepdown unit for A. fib with RVR, currently Cardizem drip is going minimally at 4. Kym the nurse tells me that patient is profoundly weak when getting up to use the commode, he felt quite lightheaded,, continues to feel dizzy. Not requiring any oxygen. Does have intermittent episodes of tachypnea. Vitals/I&O/Wt Last Vital Signs Temp 97.4 F L 05/03/20 11:15 Pulse 89 05/03/20 11:15 Resp 21 H 05/03/20 11:15 BP 104/67 05/03/20 11:15 Pulse Ox 94 05/03/20 11:15 05/03/20 05/03/20 05/03/20 06:59 14:59 22:59 Intake Total 722.083 / 005.898 7982.417 / 1630.417 Balance 722.083 / 316.495 4252.417 / 1630.417 Weight last 48 hrs Weight 98.112 kg Weight 98.157 kg Weight 104.326 kg Physical Exam Const: COMMON NORMALS: no acute distress and patient oriented x3 HENMT: COMMON NORMALS: normocephalic HEAD & SCALP: normocephalic Neck/C-Spine: COMMON NORMALS: no JVD Lymph: LYMPHATIC: no lymphadenopathy noted Resp: COMMON NORMALS: normal respiratory effort, No retractions and No use of accessory muscles AUSCULTATION: crackles Cardio: COMMON NORMALS: no JVD, S1 normal heart sound present and S2 normal heart sound present RATE: tachycardic RHYTHM: abnormal rhythm HEART S OUNDS: S1 normal heart sound present and S2 normal heart sound present GI: COMMON NORMALS: Normal to inspection, nondistended, normoactive bowel sounds present, Soft to palpation, non-tender, No hepatosplenomegaly present, no masses and no bruits PALPATION: Yes Soft to palpation and Yes No hepatosplenomegaly present Extremity: COMMON NORMALS: capillary refill normal, no clubbing, cyanosis or edema, no calf tenderness and no pedal edema Neuro: COMMON NORMALS: patient oriented x3 Psych: COMMON NORMALS: mental status grossly normal Data : 05/03/20 05:36 05/02/20 18:39 Micro: Microbiology 05/02/20 18:39 Blood Culture - Preliminary Blood SPECIMEN COLLECTED 05/02/20 18:06 Blood Culture - Preliminary Blood SPECIMEN COLLECTED A&P Assessment and plan (1) COVID-19: -Rapid test at [facility] was positive - is positive, son is positive, [id number] was positive -Has had significant exposure, risk factors include morbid obesity, diabetes -Profound fatigue, malaise, lightheadedness -Leukopenia white blood cell count 2.8 -Thrombocytopenia platelet count 118 -Fibrinogen 509 -Serum sodium 129, bicarb 18, anion gap high at 23, creatinine elevated 1.4 -Ferritin 852 -CT of the chest shows bilateral patchy groundglass opacities throughout the lungs, typical appearance of COVID-19 pneumonia, no lobar consolidation, in addition at 12 mm solid nodule superior segment left lower lobe concerning for neoplasia -Given all the information above, patient has COVID-19 -Our rapid antigen test was negative, RT-PCR is pending Plan: -Currently monitored in the CSU on COVID precautions -We will wait until RT-PCR, even if negative I am very highly suspicious, will order another PCR -Currently there is no need of Decadron as current literature supports its use only in severely ill patient, on supplemental oxygen or on the ventilator -Currently there is no need of remdesvir, as current literature supports its use only in severely ill patients on supplemental oxygen or the ventilator -Continue Rocephin and azithromycin for concerns for pneumonia follow urine bacterial antigens, blood cultures, sputum cultures -Monitor electrolytes closely -We will order stool studies -For his pulmonary nodule will have patient follow-up with pulmonary critical care as outpatient -Currently patient is a full code -Lovenox for DVT prophylaxis Status: Acute (2) Pneumonia: -Noted evidence of right-sided pneumonia on chest x-ray -Symptomatic and tested to [facility], found to be positive for COVID-19. Rapid COVID-19 test here negative, PCR pending -Isolation precautions -Received dose of Zosyn in ER, will continue treatment with ceftriaxone and azithromycin -f/u blood cx -Monitor respiratory status, supplemental oxygen as needed -ABG with noted hypoxia Status: Acute Qualifiers: Laterality: right Lung location: lower lobe of lung Pneumonia type: d ue to unspecified organism Qualified Code(s): J18.9 - Pneumonia, unspecified organism (3) Atrial fibrillation with rapid ventricular response: -Found to have A. fib with RVR with heart rates in the 170s; likely triggered by respiratory infection and not taking his metoprolol -Received 2 boluses of Cardizem, currently on Cardizem drip running at 10 mg/hr; wean off as tolerated -Continue metoprolol 50 twice daily -Telemetry monitoring -Close monitoring of vital signs -Continue Eliquis -We will repeat echocardiogram -Noted baseline troponin of 18 -Check TSH 0.48 -Magnesium 2.4 Status: Acute (4) Hypertension: -Monitor vital signs -Resume oral antihypertensives Status: Chronic Qualifiers: Hypertension type: essential hypertension Qualified Code(s): I10 - Essential (primary) hypertension (5) Hyperlipidemia: -Resume statin Status: Chronic Qualifiers: Hyperlipidemia type: mixed hyperlipidemia Qualified Code(s): E78.2 - Mixed hyperlipidemia (6) Diabetes: -Noted significant hyperglycemia, not in DKA serum ketones are negative, pH is normal -Hemoglobin A1c 9.0 -Accu-Cheks, ISS, hypoglycemia precautions -Consistent carb diet as tolerated -Hold oral hypoglycemic agents Status: Chronic Qualifiers: Diabetes mellitus complication status: without complication Diabetes mellitus wellfield technician insulin use: without wellfield technician use Diabetes mellitus type: type 2 Qualified Code(s): E11.9 - Type 2 diabetes mellitus without complications (7) Hyponatremia: Status: Acute (8) JEANNINE (acute kidney injury): Status: Acute Additional A&P Information -Morbid obesity: BMI-32 kg/m2 -Generalized weakness, likely secondary to acute infection, PT evaluation, fall precautions -Pseudohyponatremia; corrected sodium is 133 -JEANNINE on CKD stage II; gentle IV fluid hydration, continue to monitor renal function, renally dose meds, avoid nephrotoxins, monitor urine output -DVT ppx with SCDs, already on Eliquis -Dispo: home -Code status: FULL code Attestations Medical Necessity Statement*: She requires hospitalization due to COVID-19, pneumonia, A. fib Coding Level of Care Code Acute Compressor Operator Adjuster for [facility] Fwd 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 Diagnoses COVID-19 U07.1 Pneumonia J18.9 Laterality: right Lung location: lower lobe of lung Pneumonia type: due to unspecified organism Atrial fibrillation with rapid ventricular response I48.91 Hypertension I10 Hypertension type: essential hypertension Hyperlipidemia E78.2 Hyperlipidemia type: mixed hyperlipidemia Diabetes E11.9 Diabetes mellitus complication status: without complication Diabetes mellitus wellfield technician insulin use: without alf use Diabetes mellitus type: type 2 Hyponatremia E87.1 JEANNINE (acute kidney injury) N17.9
[2020-05-03 16:00] VITALS: BP 161/90; PULSE 109; RESP 20; TEMP 35.9; O2SAT 98
[2020-05-03 17:38] LABS: Glucose Point of Care 267 mg/dL (70-110)
[2020-05-03 19:02] VITALS: BP 142/88; PULSE 100; RESP 19; TEMP 36.6; O2SAT 98
[2020-05-03 20:41] LABS: Glucose Point of Care 340 mg/dL (70-110)
[2020-05-04] VITALS: BP 147/86; PULSE 135; RESP 12; TEMP 37.3; O2SAT 97
--- NOTE | 2020-05-04 01:32 | PC.NURSE ---
Addendum entered by Bettina Zhou RN 05/04/20 01:54: Dr. Carrillo notified of this. Addendum entered by Bettina Zhou RN 05/04/20 01:54: Dr. LEUNG Original Note: Patient's heart rate ranging 96-146 a-fib. Cardizem drip restarted per protocol.
--- NOTE | 2020-05-04 02:10 | PC.NURSE ---
ASSUMED CARE AT BEGINNING OF SHIFT. REPORT RECEIVED FROM OFF GOING NURSE. PT DENIES PAIN AT THAT TIME. PT HR IS ELEVATED 90-140'S RHYTHM IS A-FIB/FLUTTER. PLOW AND BORING MACHINE TENDER NURSE RESTARTED CARDIZEM GTT. WAS NOTIFIED. WILL CONTINUE TO MONITOR.
[2020-05-04 03:37] VITALS: BP 121/87; PULSE 124; RESP 21; TEMP 36.9; O2SAT 98
[2020-05-04 04:23] LABS: Basophils % 0.2 %; Eosinophils % 0.2 %; Hematocrit 39.8 % (42.0-52.0); Hemoglobin 13.6 g/dL (11.7-16.6); Lymphocytes # 1.3 10^3/uL (0.8-4.8); Lymphocytes % 23.5 %; Mean Corpuscular HGB Conc 34.2 g/dL (30.0-36.0); Mean Corpuscular Hemoglobin 30.2 pg (28.0-34.0); Mean Corpuscular Volume 88.4 fL (80-94); Mean Platelet Volume 11.2 fL (7.4-10.4); Monocytes # 0.4 10^3/uL (0.2-0.9); Monocytes % 6.8 %; Neutrophils # 3.87 10^3/uL (1.8-7.7); Neutrophils % 68.9 %; Nucleated Red Blood Cells % 0 %; Platelet Count 122 10^3/cmm (130-400); Red Cell Distribution Width 12.8 % (12.1-15.1); White Blood Count 5.6 10^3/uL (4.0-10.0)
[2020-05-04 04:49] LABS: Procalcitonin 0.06 ng/mL (0-0.5)
[2020-05-04 04:59] LABS: Creatine Phosphokinase 33 U/L (39-308)
--- NOTE | 2020-05-04 05:37 | PC.NURSE ---
PT HR INCREASED TO 160'S. BOAT BUILDER AND REPAIRER NURSE TITRATED GTT TO 10ML/HR. PT HAS 0 C/O. WILL CONTINUE TO MONITOR.
[2020-05-04 06:04] LABS: Slide Review Slide Review Perform
[2020-05-04 06:31] LABS: Glucose Point of Care 178 mg/dL (70-110)
[2020-05-04 07:21] VITALS: BP 133/83; PULSE 108; RESP 18; TEMP 36.4; O2SAT 96
[2020-05-04 08:31] LABS: Alanine Aminotransferase 14 U/L (0-41); Albumin Level 3.3 g/dL (3.5-5.2); Alkaline Phosphatase 68 IU/L (40-130); Anion Gap 18.3 (5-19); Aspartate Amino Transferase 18 U/L (0-40); Blood Urea Nitrogen 21 mg/dL (8-23); Calcium 8.6 mg/dL (8.5-10.5); Carbon Dioxide 22 mmol/L (22-29); Chloride 105 mmol/L (98-107); Globulin 2.8 g/dL (1.3-4.6); Glomerular Filtration Rate 96.4 mL/min (90-130); Glucose 159 mg/dL (65-115); Osmolality Calculated 292 mOsm/kg (285-295); Phosphorus 2.5 mg/dL (2.5-4.5); Potassium 4.3 mmol/L (3.5-5.1); Sodium 141 mmol/L (136-145); Total Bilirubin 0.3 mg/dL (0.15-1.2); Total Protein 6.1 g/dL (6.6-8.7)
[2020-05-04] MEDS: apixaban 5 mg Tablet PO (08:44)
[2020-05-04] MEDS: metoprolol tartrate 50 mg Tablet 75 MG PO (08:45)
[2020-05-04] MEDS: atorvastatin 40 mg Tablet PO (08:45)
[2020-05-04] MEDS: cefTRIAXone 1,000 MG in sodium chloride 0.9% (plus) 50 ML 100 MG IV (08:46)
[2020-05-04] MEDS: sodium chloride 0.9% 1,000 ML 100 ML IV (08:47)
[2020-05-04 11:34] LABS: Glucose Point of Care 214 mg/dL (70-110)
[2020-05-04 12:00] VITALS: BP 129/67; PULSE 94; RESP 19; TEMP 36; O2SAT 97
[2020-05-04 13:24] VITALS: BP 129/67; PULSE 94; RESP 19; TEMP 36; O2SAT 97
[2020-05-04 14:10] LABS: C Reactive Protein 6.5 mg/L (0.0-4.9)
[2020-05-04 14:38] LABS: Coronavirus Lab Test PTC Positive
--- NOTE | 2020-05-04 14:54 | PC.NURSE ---
discharge instructions given and explained.no sob.o2 sats mid 90's on room air.afebrile.denies pin.pt verb understanding of instructions.discharged via w/c to the doctor's parking lot.spouse to drive pt home.
--- NOTE | 2020-05-27 19:25 | P.DS_ITS ---
Discharge Providers Date of Admission: 05/02/20 21:38 Date of Discharge: May 27, 2020 Attending Provider at Admission: Kacey Carrillo MD Attending Provider at Discharge: Abisai Dennis MD Primary Care Provider: Ramos Bradshaw MD Diagnoses at Discharge Discharge Diagnosis (1) COVID-19: Status: Acute (2) Pneumonia: Status: Acute Qualifiers: Laterality: right Lung location: lower lobe of lung Pneumonia type: due to unspecified organism Qualified Code(s): J18.9 - Pneumonia, unspecified organism (3) Atrial fibrillation with rapid ventricular response: Status: Resolved (4) Hypertension: Status: Chronic Qualifiers: Hypertension type: essential hypertension Qualified Code(s): I10 - Essential (primary) hypertension (5) Hyperlipidemia: Status: Chronic Qualifiers: Hyperlipidemia type: mixed hyperlipidemia Qualified Code(s): E78.2 - M ixed hyperlipidemia (6) Diabetes: Status: Chronic Qualifiers: Diabetes mellitus type: type 2 Diabetes mellitus nursing home insulin use: without nursing home use Diabetes mellitus complication status: without complication Qualified Code(s): E11.9 - Type 2 diabetes mellitus without complications (7) Hyponatremia: Status: Resolved (8) JEANNINE (acute kidney injury): Status: Resolved Reason for Visit Reason for Visit: covid positive Hospital Course Discharge Summary: This is a 65-year-old male who presents to [facility] due to weakness, malaise, cough, sputum production, fevers/chills, myalgia secondary to COVID-19 and atypical pneumonia. On admission there was some discrepancy about patient's COVID status, as he was tested positive at [facility], but his rapid PCR here was negative, nonetheless he was admitted to the [facility] COVID rule out floor.Patient did have significant COVID exposure, leukopenia, thrombocytopenia, elevated fibrinogen, CT chest showed bilateral patchy groundglass opacities throughout the lungs which are characteristic of COVID-19, thus likely he has COVID positive however the RT-PCR was going to take 24 hours to return. Patient clinically did well, did not require any oxygen, did not require Decadron, received azithromycin and Rocephin for antibiotic coverage, clinically monitored. Patient remained clinically stable, did not require any oxygen, lungs sound clear, ambulating without significant symptomatology, his presenting symptoms resolved. Patient was ready for discharge, his COVID test had not come back yet, I was comfortable discharging home as he was doing significantly better, with social distancing, handwashing, self-isolation for 14 days. On admission patient was also found to have atrial fibrillation with RVR likely triggered by viral pneumonitis COVID-19, discharged on metoprolol 50 twice daily, with Eliquis, with close follow-up primary care as outpatient. Upon review of patient's chart, COVID RT-PCR came back positive. Physical Exam Const: COMMON NORMALS: no acute distress and patient oriented x3 HENMT: COMMON NORMALS: normocephalic HEAD & SCALP: normocephalic Neck/C-Spine: COMMON NORMALS: no JVD Resp: COMMON NORMALS: normal respiratory effort, No retractions, No use of accessory muscles and clear to auscultation bilaterally AUSCULTATION: clear to auscultation bilaterally Cardio: COMMON NORMALS: no JVD, regular rate, regular rhythm, S1 normal heart sound present and S2 normal heart sound present RATE: regular rate RHYTHM: regular rhythm HEART SOUNDS: S1 normal heart sound present and S2 normal heart sound present GI: COMMON NORMALS: Normal to inspection, nondistended, normoactive bowel sounds present, Soft to palpation, non-tender, No hepatosplenomegaly present, no masses and no bruits PALPATION: Yes Soft to palpation and Yes No hepatosplenomegaly present Extremity: COMMON NORMALS: capillary refill normal, no clubbing, cyanosis or edema, no calf tenderness and no pedal edema Neuro: COMMON NORMALS: patient oriented x3 Psych: COMMON NORMALS: mental status grossly normal Discharge Data Data Completed and Pending: Completed Studies During Hospitalization Category Date Time Status CT angio chest PE protcl [id number] Stat Cat Scan 05/03/20 09:[address] head wo con* 7 [id number] Stat Cat Scan 05/02/20 18:03 Completed XR chest 1V donny ble [id number] Stat Exams 05/02/20 17:56 Completed Vitals: Last Vital Signs Temp 96.8 F L 05/04/20 13:24 Pulse 94 05/04/20 13:24 Resp 19 H 05/04/20 13:24 BP 129/67 05/04/20 13:24 Pulse Ox 97 05/04/20 13:24 Discharge Plan Discharge Patient Disposition: Home Condition: Stable Prescriptions: New metoprolol tartrate 50 mg Tablet 75 mg PO BID 30 Days Qty: 90 RF: 0 Continued Jardiance 25 mg tablet 25 mg PO DAILY RF: 0 Eliquis 5 mg tablet 5 mg PO BID RF: 0 rosuvastatin 10 mg tablet 10 mg PO DAILY RF: 0 metformin 1,000 mg tablet 1,000 mg PO DAILY RF: 0 losartan 50 mg Tablet 50 mg PO DAILY RF: 0 magnesium 250 mg Tablet 250 mg PO DAILY RF: 0 krill oil 1,832-486-85-80 mg Capsule 1 cap PO DAILY RF: 0 Discontinued metoprolol tartrate 50 mg tablet 50 mg PO BID Qty: 180 RF: 3 Discharge Orders: Discharge Order (Routine); Ordered 05/04/20 Ordered By: Abisai Dennis Referrals: Ramos Bradshaw MD [Primary Care Provider] - 7-10 days (Drake José will be calling to schedule a hospital followup with dr. Bradshaw to be seen in 7 to 10 days. If you don't hear from them by tomorrow afternoon, please give them a call) Sanna Armstrong MD [Physician] - 1 month (Dr. Livingston's office will be calling to set up at [facility] followup for pulmonary nodules to to been in 1 month. If you don't hear from them by tomorrow afternoon, please give them a call) Discharge Diet: Regular Patient Instructions: Levofloxacin (By mouth), Atrial Fibrillation (DC), Severe Acute Respiratory Syndrome (SARS) (DC) Activity Restrictions/Additional Instructions: -Please socially distance, hand wash, face mask -Self quarantine for at least 21 days -For your atrial fibrillation, I increased her dose of metoprolol to 75 twice daily -If you feel lightheaded, dizzy please come back to the emergency room -If you have worsening cough, shortness of breath, fevers come back to the emergency room -Please take antibiotics as prescribed Discharge Date/Time: 05/04/20 14:58 Discharge Attestations Time Spent in Discharge Care*: less than 30 min Quality Metrics Clinical Quality Measures During this hospital stay, did patient experience: None Coding Level of Care Code Acute Doctor Of Medicine for g Fwd Diagnoses COVID-19 U07.1 Pneumonia J18.9 Laterality: right Lung location: lower lobe of lung Pneumonia type: due to unspecified organism Atrial fibrillation with rapid ventricular response I48.91 Hypertension I10 Hypertension type: essential hypertension Hyperlipidemia E78.2 Hyperlipidemia type: mixed hyperlipidemia Diabetes E11.9 Diabetes mellitus type: type 2 Diabetes mellitus nursing home insulin use: without nursing home use Diabetes mellitus complication status: without complication Hyponatremia E87.1 JEANNINE (acute kidney injury) N17.9
== END 2020-05-04 14:58 | disposition home or self-care (01) | DRG 177 ==
LOC: ER 21:17 → CSU 22:21
PROVIDERS: Emergency Medicine; Family Medicine; Admitting Provider Family Medicine; PCP Family Medicine; Visit Provider Family Medicine
DX: U07.1 COVID-19 (principal); J12.89 Other viral pneumonia; E87.1 Hypo-osmolality and hyponatremia; N17.9 Acute kidney failure, unspecified; I48.91 Unspecified atrial fibrillation; E11.22 Type 2 diabetes mellitus with diabetic chronic kidney disease; I12.9 Hypertensive chronic kidney disease with stage 1 through stage 4 chronic kidney disease, or unspecified chronic kidney disease; N18.2 Chronic kidney disease, stage 2 (mild); E78.5 Hyperlipidemia, unspecified; R01.1 Cardiac murmur, unspecified; Z87.891 Personal history of nicotine dependence; E66.01 Morbid (severe) obesity due to excess calories; Z68.32 Body mass index [BMI] 32.0-32.9, adult; D69.6 Thrombocytopenia, unspecified; Z79.01 Long term (current) use of anticoagulants
CPT/HCPCS: 12345; 36415; 36416; 36600; 70450; 71045; 71275; 80053; 81003; 82009; 82274; 82550; 82728; 82803; 82962; 83036; 83605; 83615; 83630; 83735; 84100; 84145; 84443; 84484; 85025; 85378; 85384; 85610; 85730; 86140; 87040; 87426; 87493; 87506; 87635; 93005; 96372; 96375; 99283; J0456; J0696; J1100; J1815; J2543; J3490; J7030; J7050; Q9967

== ENCOUNTER 2020-08-19 08:44 | Outpatient (CLI) | payer MEDICARE, SELFPAY ==
--- NOTE | 2020-08-19 09:00 | CT_ITS ---
WS: [id number] Exam: CT chest wo con [id number] Date/Time of Exam: 08/19/2020 9:19 AM Reason For Exam: Pulmonary nodule DLP: 1074.[address] scans at [facility] use at least one of these dose optimization techniques: automat ed exposure control; mA and/or kV adjustment per patient size (includes targeted exams where dose is matched to clinical indication); or iterative reconstruction. Comparison 05/03/2020. 12 mm solid nodule seen in the superior segment of the left lower lobe is unchanged in size and appea vonda. There are several nodular infiltrates scattered in the right lung which may be sequela from pr evious Covid pneumonia. The lungs are fully inflated. Previously noted scattered groundglass infiltra shelly on prior study for the most part have resolved. The thoracic aorta is normal in caliber. The airw ay is patent. No significant mediastinal or hilar lymphadenopathy. No pleural or pericardial effusion . No destructive bone lesions are chest wall defects. Recommendations: If this patient is considered high risk for pulmonary malignancy, further workup wit h PET/ CT or biopsy might be considered. Otherwise follow-up CT in 4-6 months for surveillance could be performed. CT/CT chest wo con [id number] IMPRESSION: 1. 12 mm solid nodule in the superior segment of the left lower lobe showing no change in size or appearance since prior study. 2. Several small ill-defined nodular infiltrates scattered in the right lung wh ich may be residuals from Covid pneumonia. 3. No significant mediastinal or hilar lymphadenopathy.
== END 2020-08-19 08:45 | disposition home or self-care (01) ==
LOC: RADWPI 08:48
PROVIDERS: PCP Family Medicine; Visit Provider Internal Medicine Critical Care Medicine
DX: R91.1 Solitary pulmonary nodule (principal); R91.8 Other nonspecific abnormal finding of lung field
CPT/HCPCS: 71250

== ENCOUNTER 2021-03-12 13:54 | Outpatient (CLI) | payer MEDICARE, SELFPAY ==
--- NOTE | 2021-03-12 14:15 | CTR_ITS ---
PROCEDURE INFORMATION: Exam: CT Chest Without Contrast; Diagnostic Exam date and time: 03/12/2021 2:15 PM Age: 66 years old Clinical indication: Condition or disease; Lung condition and disease; Other: Nodule; Additional info: Lung nodule TECHNIQUE: Imaging protocol: Diagnostic computed tomography of the chest without contrast. Radiation optimization: All CT scans at this facility use at least one of these dose optimization techniques: automated exposure control; mA and/or kV adjustment per patient size (includes targeted exams where dose is matched to clinical indication); or iterative reconstruction. COMPARISON: CT chest wo con [id number] 08/19/2020 9:18 AM, CTA chest 05/03/2020 RADIATION DOSE METRICS: Total DLP (mGy-cm): 917.91 FINDINGS: Lungs: 1.2 cm solid nodule in the superior left lower lobe as noted on series 2, image 25 unchanged dating back to 05/03/2020 study. No new pulmonary nodules/masses seen. No consolidation. Pleural spaces: Unremarkable. No pneumothorax. No pleural effusion. Heart: Unremarkable. No cardiomegaly. No pericardial effusion. Aorta: Unremarkable. No aortic aneurysm. Lymph nodes: Unremarkable. No enlarged lymph nodes. Bones/joints: No acute fracture. No aggressive osseous lesions. Soft tissues: Unremarkable. CT/CT chest wo con [id number] IMPRESSION: Continued stability of a 1.2 cm nodule in the left lower lobe, unchanged since the 05/03/2020 study. Continued imaging follow-up is recommended to establish 2 year stability. Radiation Dose CTDIVOL = (mGy): DLP = 917.91 (mGy-cm)
== END 2021-03-12 13:55 | disposition home or self-care (01) ==
PROVIDERS: PCP Family Medicine; Visit Provider Internal Medicine Critical Care Medicine
DX: R91.1 Solitary pulmonary nodule (principal)
CPT/HCPCS: 71250

== ENCOUNTER 2023-02-05 21:30 | Emergency (ER) | payer MEDICARE, SELFPAY ==
[2023-02-05 21:32] VITALS: BP 197/83; PULSE 77; RESP 14; TEMP 36.4; O2SAT 97
--- NOTE | 2023-02-05 23:28 | XRR_ITS ---
PROCEDURE INFORMATION: Exam: XR Right Toe(s) Exam date and time: 02/05/2023 11:49 PM Age: 67 years old Clinical indication: Injury or trauma; Other: Laceration to great toe; Crushing; Toes; Right great toe; Additional info: Injury laceration right great toe TECHNIQUE: Imaging protocol: Radiologic exam of the right toes. Views: Minimum 2 views. COMPARISON: No relevant prior studies available. FINDINGS: Bones/joints: Acute nondisplaced fracture of the distal phalanx of the great toe. Proximal phalanx is intact. First metatarsal is intact. Interphalangeal joint is intact. Soft tissues: Soft tissue swelling noted. XR/XR toe RT min 2V [id number] IMPRESSION: Acute nondisplaced fracture of the distal phalanx of the great toe.
--- NOTE | 2023-02-05 23:43 | W.ED.LOWEXIN ---
Documented by User: ISRA Lackey 02/06/23 18:01 HPI - Extremity Injury (Lower) General: Chief Complaint: Extremity Injury, Lower Stated Complaint: right foot injury / big toe Time Seen by Provider: 02/05/23 23:18 Source: patient Mode of arrival: ambulatory Limitations: no limitations History of Present Illness: Patient is a very nice 67-year-old male who presents to ED today for evaluation of a right great toe injury that he sustained just prior to arrival after he was playing with his grandsons and states he caught the toe on something . Patient states he is a diabetic. MD complaint: foot injury Onset (ago): hour(s) Injury: Right: toes Type of Injury: blunt and laceration Place: home Severity: moderate Relieving factors: nothing Exacerbating factors: movement Context: direct blow Associated symptoms: Reports no associated symptoms Other symptoms: none Treatments prior to arrival: bandage Review of Systems Musc: Reports: extremity pain (R great toe) Skin/Breast: Reports: other (laceration to R great toe) Neuro: Reports: sensory changes (chronic LE diabetic neuropathy) [facility] ED PFSH: Medical History Atrial fibrillation Diabetes Fatigue Hyperlipidemia Hypertension Left carotid bruit Surgical History No pertinent past surgical history Family History Father Stroke Family/Other No problems noted. Mother Diabetes Brother Diabetes Sister Diabetes Other Hypertension Denies family history of CAD (coronary artery disease) Clotting disorder Dementia Chronic kidney disease (CKD) Suicide Anesthesia complication Bleeding disorder Lung disease Cancer Social History Smoking and tobacco status: former smoker Quit status (tobacco): has quit using tobacco Year quit tobacco: 1984 Former quit date comment: Hx of 1.5 PPD x 15 Years Second hand smoke exposure: No Alcohol intake: former Year of sobriety/quit date alcohol: 1984 Substance/Drug Use: never Lives independently: Yes Household members: spouse Marital status: Current occupational status: retired Do you think of yourself as: Straight/Heterosexual Current gender identity: Male Physical Exam Const: COMMON NORMALS: no acute distress, patient oriented x3, no limitations, alert and well nourished GENERAL APPEARANCE: cooperative ORIENTATION/CONSCIOUSNESS: Yes awake, Yes oriented to person, Yes oriented to place and Yes oriented to time Extremity: GENERAL: Yes normal exam except as noted RIGHT LOWER EXTREMITY: Yes foot & digits OTHER: patient has a 1.5 cm laceration to lateral aspect of R great toenail and a smaller 0.5 cm laceration to medial aspect; toenail seems loose but is still anchored with no apparent damage to nail base or nail bed Neuro: COMMON NORMALS: patient oriented x3 SENSORIUM/ORIENTATION: Yes alert, Yes oriented to person, Yes oriented to place and Yes oriented to time Skin: NARRATIVE SKIN EXAM: see above Procedures Laceration Laceration 1: Site: lower extremity Side (If applicable): right (great toe) Size (cm): 1.25 Description: linear Depth: simple, single layer Local Anesthetic: lidocaine 1% (digital block) Amount of anesthesia used (mL): 2.0 Pre-repair: wound explored and irrigated extensively Skin layer closed with: nylon Size (cm): 4-0 Number of sutures: 4 Technique: simple, interrupted Course Vital Signs: Vital signs: Vital Signs Temperature 97.5 F L 02/05/23 21:32 Pulse Rate 88 02/06/23 01:16 Respiratory Rate 16 02/06/23 01:16 Blood Pressure 197/83 02/05/23 21:32 Pulse Oximetry 95 02/06/23 01:16 Oxygen Delivery Me thod Room Air 02/05/23 21:32 MDM - Extremity Injury (Lower) Medical Decision Making Patient has an open fracture of his right great toe. Unfortunately we do not have podiatry on-call. I spoke to Dr. Angelo who was agreeable with plan of extensive washout, loosely repairing laceration, splinting, and prompt podiatry follow-up. Case management referral has been placed for this. Patient was given IM Ancef here. Will be placed on antibiotics for coverage of staph and pseudomonas given his history of diabetes. Strict return ED precautions given. Lab Data Radiology Impressions Toe X-Ray 02/05/23 23:28 IMPRESSION: Acute nondisplaced fracture of the distal phalanx of the great toe. Discharge Plan Discharge Patient Disposition: Home Clinical Impression: Open fracture of great toe of right foot Qualifiers: Encounter type: initial encounter Phalanx: distal Fracture alignment: nondisplaced Qualified Code(s): S92.424B - Nondisplaced fracture of distal phalanx of right great toe, initial encounter for open fracture Condition: Stable Prescriptions: New hydrocodone-acetaminophen 5-325 mg tablet 1 tab PO Q6H PRN (Reason: pain) Qty: 14 0RF Cipro 500 mg tablet 500 mg PO Q12H Qty: 14 0RF cephalexin 500 mg capsule 500 mg PO Q6H 7 Days Qty: 28 0RF No Action chlorthalidone 25 mg tablet 12.5 mg PO DAILY metoprolol tartrate 25 mg tablet 37.5 mg PO BID glipizide 5 mg tablet 2.5 mg PO DAILY magnesium oxide 400 mg magnesium capsule 400 mg PO DAILY Jardiance 25 mg tablet 25 mg PO DAILY Eliquis 5 mg tablet 5 mg PO BID rosuvastatin 10 mg tablet 10 mg PO DAILY metformin 1,000 mg tablet 1,000 mg PO DAILY amlodipine 5 mg tablet 5 mg PO DAILY Qty: 90 0RF losartan 100 mg tablet 100 mg PO DAILY Qty: 90 0RF Rx Instructions: Must be seen for further refills krill oil 1,201-914-14-80 mg Capsule 1 cap PO DAILY Discharge Orders: Discharge ED (Routine); Ordered 02/06/23 Ordered By: Candelaria Last Referrals: Ramos Bradshaw MD [Primary Care Provider] - Patient Instructions: Toe Fracture (ED), Opioid Safety, Pain Management Activity Restrictions/Additional Instructions: As we discussed you need to keep wound clean with warm soap and water twice daily and monitor very closely for signs of infection such as redness, increased pain, purulent drainage, foul odor, red streaking up your foot or leg, fevers, or any other concerns you may have-you need to seek emergent reevaluation if these occur.. I have placed a referral with case management to get you an appointment with podiatry as soon as possible. If you have not heard from them by day on Tuesday you need to contact us to further expedite this. Coding Level of Care Code ED Jacquard Loom Fixer for Chg Fwd Documented by User: Delano Angelo, 02/06/23 18:59 HPI - Extremity Injury (Lower) General: Chief Complaint: Extremity Injury, Lower Stated Complaint: right foot injury / big toe Time Seen by Provider: 02/05/23 23:18 PFSH ED PFSH: Medical History Atrial fibrillation Diabetes Fatigue Hyperlipidemia Hypertension Left carotid bruit Surgical History No pertinent past surgical history Family History Father Stroke Family/Other No problems noted. Mother Diabetes Brother Diabetes Sister Diabetes Other Hypertension Denies family history of CAD (coronary artery disease) Clotting disorder Dementia Chronic kidney disease (CKD) Suicide Anesthesia complication Bleeding disorder Lung disease Cancer Social History Smoking and tobacco status: former smoker Quit status (tobacco): has quit using tobacco Year quit tobacco: 1984 Former quit date comment: Hx of 1.5 PPD x 15 Years Second hand smoke exposure: No Alcohol intake: former Year of sobriety/quit date alcohol: 1984 Substance/Drug Use: never Lives independently: Yes Household members: spouse Marital status: Current occupational status: retired Do you think of yourself as: Straight/Heterosexual Current gender identity: Male Course Vital Signs: Vital signs: Vital Signs Temperature 97.5 F L 02/05/23 21:32 Pulse Rate 88 02/06/23 01:16 Respiratory Rate 16 02/06/23 01:16 Blood Pressure 197/83 02/05/23 21:32 Pulse Oximetry 95 02/06/23 01:16 Oxygen Delivery Me thod Room Air 02/05/23 21:32 MDM - Extremity Injury (Lower) Medical Decision Making Patient has an open fracture of his right great toe. Unfortunately we do not have podiatry on-call. I spoke to Dr. Angelo who was agreeable with plan of extensive washout, loosely repairing laceration, splinting, and prompt podiatry follow-up. Case management referral has been placed for this. Patient was given IM Ancef here. Will be placed on antibiotics for coverage of staph and pseudomonas given his history of diabetes. Strict return ED precautions given. This patient was originally seen by Berhane?MARRY Damon? I agree with her history, evaluation, and treatment. Lab Data Radiology Impressions Toe X-Ray 02/05/23 23:28 IMPRESSION: Acute nondisplaced fracture of the distal phalanx of the great toe. Discharge Plan Discharge Patient Disposition: Home Clinical Impression: Open fracture of great toe of right foot Qualifiers: Encounter type: initial encounter Phalanx: distal Fracture alignment: nondisplaced Qualified Code(s): S92.424B - Nondisplaced fracture of distal phalanx of right great toe, initial encounter for open fracture Condition: Stable Prescriptions: New hydrocodone-acetaminophen 5-325 mg tablet 1 tab PO Q6H PRN (Reason: pain) Qty: 14 0RF Cipro 500 mg tablet 500 mg PO Q12H Qty: 14 0RF cephalexin 500 mg capsule 500 mg PO Q6H 7 Days Qty: 28 0RF No Action chlorthalidone 25 mg tablet 12.5 mg PO DAILY metoprolol tartrate 25 mg tablet 37.5 mg PO BID glipizide 5 mg tablet 2.5 mg PO DAILY magnesium oxide 400 mg magnesium capsule 400 mg PO DAILY Jardiance 25 mg tablet 25 mg PO DAILY Eliquis 5 mg tablet 5 mg PO BID rosuvastatin 10 mg tablet 10 mg PO DAILY metformin 1,000 mg tablet 1,000 mg PO DAILY amlodipine 5 mg tablet 5 mg PO DAILY Qty: 90 0RF losartan 100 mg tablet 100 mg PO DAILY Qty: 90 0RF Rx Instructions: Must be seen for further refills krill oil 1,990-962-96-80 mg Capsule 1 cap PO DAILY Discharge Orders: Discharge ED (Routine); Ordered 02/06/23 Ordered By: Candelaria Last Referrals: Ramos Bradshaw MD [Primary Care Provider] - Patient Instructions: Toe Fracture (ED), Opioid Safety, Pain Management Activity Restrictions/Additional Instructions: As we discussed you need to keep wound clean with warm soap and water twice daily and monitor very closely for signs of infection such as redness, increased pain, purulent drainage, foul odor, red streaking up your foot or leg, fevers, or any other concerns you may have-you need to seek emergent reevaluation if these occur.. I have placed a referral with case management to get you an appointment with podiatry as soon as possible. If you have not heard from them by midday on Tuesday you need to contact us to further expedite this. Coding Level of Care Code ED Jacquard Loom Fixer for Darryl Jimenez
[2023-02-06] MEDS: ceFAZolin 1,000 MG in water for injection-sterile 2.5 ML 1 MG IM (00:06)
[2023-02-06 01:16] VITALS: PULSE 88; RESP 16; O2SAT 95
--- NOTE | 2023-02-06 04:46 | DCPLANNER ---
Addendum entered by Andria Teixeira 02/11/23 15:15: Patient had a follow up appointment scheduled with ortho - patient did attend appointment. Original Note: batch and furnace manager had message to schedule a follow up appointment for patient with podiatry. batch and furnace manager sent patients information to the front office staff at podiatry. Patients information will be printed and reviewed. Clinic will call patient with appointment information.
== END 2023-02-06 01:17 | disposition home or self-care (01) ==
PROVIDERS: Emergency Provider Physician Assistant; PCP Family Medicine
DX: S92.424B Nondisplaced fracture of distal phalanx of right great toe, initial encounter for open fracture (principal); Z79.01 Long term (current) use of anticoagulants; Z79.84 Long term (current) use of oral hypoglycemic drugs; E11.9 Type 2 diabetes mellitus without complications; E78.5 Hyperlipidemia, unspecified; I10 Essential (primary) hypertension; Z87.891 Personal history of nicotine dependence; W22.8XXA Striking against or struck by other objects, initial encounter
CPT/HCPCS: 73660; 96372; 99284; J0690

== ENCOUNTER → 2023-02-10 14:14 | Outpatient (BNVA) | payer MEDICARE, SELFPAY | PROVIDERS: PCP Family Medicine; Visit Provider Podiatrist Foot & Ankle Surgery | DX: S97.81XA Crushing injury of right foot, initial encounter (principal); S92.424A Nondisplaced fracture of distal phalanx of right great toe, initial encounter for closed fracture; W18.40XA Slipping, tripping and stumbling without falling, unspecified, initial encounter | CPT/HCPCS: 99204 ==

== ENCOUNTER → 2023-02-23 13:43 | Outpatient (BNVA) | payer MEDICARE, SELFPAY | PROVIDERS: PCP Family Medicine; Visit Provider Podiatrist Foot & Ankle Surgery | DX: S92.424D Nondisplaced fracture of distal phalanx of right great toe, subsequent encounter for fracture with routine healing (principal); W18.40XD Slipping, tripping and stumbling without falling, unspecified, subsequent encounter | CPT/HCPCS: 73630; 99213 ==

== ENCOUNTER → 2023-03-28 07:50 | Outpatient (BNVA) | payer MEDICARE, SELFPAY | PROVIDERS: PCP Family Medicine; Visit Provider Podiatrist Foot & Ankle Surgery | DX: S92.424D Nondisplaced fracture of distal phalanx of right great toe, subsequent encounter for fracture with routine healing; W18.40XD Slipping, tripping and stumbling without falling, unspecified, subsequent encounter; E11.42 Type 2 diabetes mellitus with diabetic polyneuropathy; Z79.84 Long term (current) use of oral hypoglycemic drugs | CPT/HCPCS: 73630; 99214 ==

== ENCOUNTER → 2024-03-27 08:18 | Outpatient (BNVA) | payer MEDICARE, SELFPAY | PROVIDERS: PCP Family Medicine; Visit Provider Podiatrist Foot & Ankle Surgery | DX: E11.42 Type 2 diabetes mellitus with diabetic polyneuropathy (principal); Z79.84 Long term (current) use of oral hypoglycemic drugs | CPT/HCPCS: 99213 ==

== ENCOUNTER 2025-01-22 09:39 | Outpatient (CLI) | payer MEDICARE, SELFPAY ==
--- NOTE | 2025-01-22 09:47 | USR_ITS ---
PROCEDURE INFORMATION: Exam: US Bilateral Noninvasive Physiologic Study of the Lower Extremity Arteries, Limited Exam date and time: 01/22/2025 9:38 AM Age: 69 years old Clinical indication: Pain; Leg, lower; Bilateral; Additional info: Claudication TECHNIQUE: Imaging protocol: Bilateral Limited bilateral noninvasive physiologic studies of lower extremity arteries. Waveforms were obtained and evaluated. Images were documented and archived. Exam is limited. COMPARISON: CR XR foot RT min 3V* [id number] 03/28/2023 7:54 AM FINDINGS: Right Ankle-Brachial Index: 1.16 along the posterior tibial artery, 1.12 along the dorsalis pedis artery, and 1.28 along the digit. Left Ankle-Brachial Index: 1.18 along the posterior tibial artery, 1.2 and along the dorsalis pedis artery, and 1.17 along the digit. US/CV ankle brachial index [id number] IMPRESSION: Bilateral ABIs within normal limits.
== END 2025-01-22 09:40 | disposition home or self-care (01) ==
PROVIDERS: PCP Family Medicine; Visit Provider Family Medicine
DX: I73.9 Peripheral vascular disease, unspecified (principal)
CPT/HCPCS: 93922

== ENCOUNTER → 2025-03-26 07:57 | Outpatient (BNVA) | payer MEDICARE, SELFPAY | PROVIDERS: PCP Family Medicine; Visit Provider Podiatrist Foot & Ankle Surgery | DX: E11.8 Type 2 diabetes mellitus with unspecified complications (principal); E11.42 Type 2 diabetes mellitus with diabetic polyneuropathy; Z79.84 Long term (current) use of oral hypoglycemic drugs | CPT/HCPCS: 99213 ==